=== PATIENT | female | born 1990 | race American Indian/Alaskan Native ===

== ENCOUNTER 2019-07-21 04:22 | Emergency (ER) | payer SELFPAY ==
[2019-07-21 04:52] VITALS: BP 132/87
--- NOTE | 2019-07-21 05:05 | Emergency Department Report ---
- General Chief complaint: Skin Rash Stated complaint: BODY RASH Time Seen by Provider: 07/21/19 04:54 Source: patient Mode of arrival: Ambulatory Limitations: No Limitations - History of Present Illness Initial comments: Patient is a 29-year-old female presents emergency room with complaints of a rash diffusely that began yesterday. She has associated itching. She denies sleeping in a different place. Denies anyone else with the same rash. She denies any new soaps, detergents, lotions, medications, foods. Denies any drainage or fever. she denies any SOB, difficulty swallowing, sensation of throat closing. Patient denies any past medical history or allergies medications. States her last menstrual cycle was 07/15/19. - Related Data Previous Rx's Medication Instructions Recorded Last Taken Type Hydrocortisone [Hydrocortisone 1 applicatio TP TID #1 oint...g. 07/21/19 Unknown Rx 2.5% OINT] diphenhydrAMINE [Benadryl CAP] 25 mg PO Q6HR PRN #14 capsule 07/21/19 Unknown Rx Allergies Allergy/AdvReac Type Severity Reaction Status Date / Time No Known Allergies Allergy Unverified 07/21/19 04:46 Abscess Boil HPI - HPI Chief Complaint: Skin Rash Stated Complaint: BODY RASH Time Seen by Provider: 07/21/19 04:54 Home Medications: Previous Rx's Medication Instructions Recorded Last Taken Type Hydrocortisone [Hydrocortisone 1 applicatio TP TID #1 oint...g. 07/21/19 Unknown Rx 2.5% OINT] diphenhydrAMINE [Benadryl CAP] 25 mg PO Q6HR PRN #14 capsule 07/21/19 Unknown Rx Allergies/Adverse Reactions: Allergies Allergy/AdvReac Type Severity Reaction Status Date / Time No Known Allergies Allergy Unverified 07/21/19 04:46 ED Review of Systems ROS: Stated complaint: BODY RASH Other details as noted in HPI Comment: All other systems reviewed and negative ED Past Medical Hx - Past Medical History Previous Medical History?: Yes Additional medical history: Obesity - Surgical History Past Surgical History?: No - Social History Smoking Status: Never Smoker Substance Use Type: None - Medications Home Medications: Home Medications Medication Instructions Recorded Confirmed Last Taken Type Hydrocortisone [Hydrocortisone 1 applicatio TP TID #1 oint...g. 07/21/19 Unk nown Rx 2.5% OINT] diphenhydrAMINE [Benadryl CAP] 25 mg PO Q6HR PRN #14 capsule 07/21/19 Unknown Rx ED Physical Exam - General Limitations: No Limitations General appearance: alert, in no apparent distress - Head Head exam: Present: atraumatic, normocephalic - Eye Eye exam: Present: normal appearance - ENT ENT exam: Present: mucous membranes moist - Neurological Exam Neurological exam: Present: alert, oriented X3 - Psychiatric Psychiatric exam: Present: normal affect, normal mood - Skin Skin exam: Present: warm, dry, urticaria (small amount on the right upper arm, small amount on the left arm, not present on the back, chest, or abdomen, no skin denuding, no scaling, no burrowing, no blistering) ED Course Vital Signs 07/21/19 04:39 Temperature 98.4 F Pulse Rate 94 H Respiratory 16 Rate Blood Pressure 132/87 O2 Sat by Pulse 100 Oximetry ED Medical Decision Making - Medical Decision Making Patient is a 29-year-old female presents emergency room with complaints of a rash diffusely that began yesterday. She has associated itching. She denies sleeping in a different place. Denies anyone else with the same rash. She denies any new soaps, detergents, lotions, medications, foods. Denies any drainage or fever. she denies any SOB, difficulty swallowing, sensation of throat closing. Patient denies any past medical history or allergies medications. States her last menstrual cycle was 07/15/19. VSS. on exam: small amount of urticaria on the right upper arm, small amount on the left arm, not present on the back, chest, or abdomen, no skin denuding, no scaling, no burrowing, no blistering. Patient given prescription for hydrocortisone ointment and Benadryl. advised pt to please use medication as prescribed. Do not drive or operate machinery while taking Benadryl due to potential for drowsiness. Avoid scratching. Follow-up with a primary care doctor in the next 3-5 days. Return to the emergency room for any new or worsening symptoms. - Differential Diagnosis contact/irritant derm, allergic rxn, scabies, bed bugs/insect bite, urticar Critical care attestation.: If time is entered above; I have spent that time in minutes in the direct care of this critically ill patient, excluding procedure time. ED Disposition Clinical Impression: Rash Disposition: DC-01 TO HOME OR SELFCARE Is pt being admited?: No Does the pt Need Aspirin: No Condition: Stable Instructions: Acute Rash (ED) Additional Instructions: Please use medication as prescribed. Do not drive or operate machinery while taking Benadryl due to potential for drowsiness. Avoid scratching. Follow-up with a primary care doctor in the next 3-5 days. Return to the emergency room for any new or worsening symptoms. Prescriptions: diphenhydrAMINE [Benadryl CAP] 25 mg PO Q6HR PRN #14 capsule PRN Reason: itching Hydrocortisone [Hydrocortisone 2.5% OINT] 1 applicatio TP TID #1 oint...g. Referrals: [facility] [Provider Group] - 3-5 Days Time of Disposition: 05:02 Print Language: ESTONIAN
== END 2019-07-21 05:17 | disposition home or self-care (01) ==
LOC: ED 04:22
DX: R21 Rash and other nonspecific skin eruption (principal); E66.9 Obesity, unspecified; Z68.42 Body mass index [BMI] 45.0-49.9, adult; Z79.899 Other long term (current) drug therapy
CPT/HCPCS: 99282